=== PATIENT | male | born 1995 | race Caucasian/White ===

== ENCOUNTER 2017-06-15 19:57 | Emergency (ER) | payer BC ==
[~2017-06-15] VITALS: Ht 185.4 cm; Wt 88.5 kg
--- OUTSIDE RECORDS SUMMARY | 2017-06-15 20:04 | XMS REPORT | Continuity of Care Document ---
Author Author [facility] Address Unknown Phone Unavailable Allergies Active Description Code Type Severity Reaction Onset Reported/Identified Relationship to Patient Clinical Status Yes No Known Drug Allergies [id number] Drug Allergy Unknown N/ A 04/22/2010 Medications Problems Date Dx Coded Attending Type Code Diagnosis Diagnosed By 03/12/2008 ROBERTA ROMERO APRN 729.5 PAIN IN LIMB 03/12/2008 ROBERTA ROMERO APRN 786.2 COUGH 03/15/2008 ROBERTA ROMERO APRN 465.9 UPPER RESPIRATORY INFECTION 12/23/2008 ROBERTA ROMERO APRN 008.8 GASTROENTERITIS VIRAL 04/14/2009 ROBERTA ROMERO APRN 079.99 VIRAL SYNDROME 04/14/2009 ROBERTA ROMERO APRN 519.11 BRONCHOSPASM 04/22/2010 Ot 881.10 04/22/2010 Ot E000.8 04/22/2010 Ot E029.9 04/22/2010 Ot E849.8 04/22/2010 Ot E920.8 07/18/2010 ROBERTA ROMERO APRN 313.81 CD OPPOSITIONAL DEFIANT 11/17/2010 ROBERTA ROMERO APRN V05.4 VARICELLA, [place] 04/26/2014 ROBERTA ROMERO APRN 216.9 BENIGN NEOPLASM OF SKIN SITE UNSPECIFIED 04/26/2014 ROBERTA ROMERO APRN 462 ACUTE PHARYNGITIS 03/04/2015 ADAM STEPHENS, MARISELA Pelaez Ot 786.50 CHEST PAIN NOS 03/04/2015 ADAM STEPHENS, MARISELA Pelaez Ot 786.52 PAINFUL RESPIRATION Procedures Results Encounters ACCT No. Visit Date/Time Discharge Status Pt. Type Provider Facility Loc./Unit Complaint [id number] 04/26/2014 17:49:00 04/26/2014 23: 59:59 CLS Outpatient ROBERTA ROMERO APRN [id number] 03/04/2015 16:36:00 2014 17:40:00 DIS Emergency ADAM STEPHENS, MARISELA [facility] CHEST PAINS [id number] 04/22/2010 21:07:00 Document Registration
--- OUTSIDE RECORDS SUMMARY | 2017-06-15 20:04 | XMS REPORT ---
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 Info Not Available Non Drug Allergy Problems Problem Type Condition Code Onset Dates Condition Status Problem Benign neoplasm of skin, site unspecified 216.9 Active Assessment Allergic rhinitis, unspecified allergic rhinitis trigger, unspecified rhinitis seasonality J30.9 Active Problem Acute pharyngitis 462 Active Medications Medication Code System Code Instructions Start Date End Date Status Dosage Zyrtec Allergy [facility] [address]-32 10 MG Orally Once a day Mar 28, 2016 Apr 27, 2016 1 tablet Augmentin [facility] [address]-19 875-125 MG Orally every 12 hrs Mar 28, 2016 Apr 07, 2016 1 tablet Flonase [facility] [address]-56 50 MCG/ACT Nasally Once a day Mar 28, 2016 1 spray in each nostril Procedures Procedure Coding System Code Date Office Visit, Est Pt., Level 3 CPT-4 02010 Mar 28, 2016 Vital Signs Date/Time: Mar 28, 2016 Cardiac Monitoring Heart Rate 80 bpm Weight 170 lbs Height 72 in Wt Percentile 70.64 % BMI 23.05 Index Blood Pressure Diastolic 76 mmHg Blood Pressure Systolic 122 mmHg BMIPercentile 51.49 % Results No Known Results Summary Purpose [employer] Submission
[2017-06-15] MEDS ORDERED: RX-HYDROXYZINE PAMOATE 25 MG CAP #4 PO STA (20:26)
--- NOTE | 2017-06-15 20:34 | ED Psychosocial ---
General Chief Complaint: Psych/Social Disorder Stated Complaint: CP/SOB Nursing Triage Note: Ambulatory to ED 3 with reports of chest pain, shortness of breath, but reports that it feels more like an anxiety attack. Patient reports that he now feels somewhat better. Source: patient, family (mom) Exam Limitations: no limitations History of Present Illness Time seen by provider: 20:18 Initial Comments Patient presents to ER by private conveyance with his mother with a chief complaint that about an hour ago he started experiencing some palpitations heart racing and feeling a little shortness of breath. He says he was just at home taking a shower minding his own business not having any significant stress for the past day or 2. He says he gets these attacks usually for about 10-20 minutes every 1-2 weeks for the past several months. He thinks they are panic attacks and is never done anything about them. He sees Dr. Luevano as a primary care physician but was never addressed this problem with her. He has never been in counseling. He does not take any medications nor have any history of anxiety disorder. He is without any symptoms at this time. His mother was concerned because he seemed to complain that this was more severe than the past. He denies cough, history of asthma, shortness of breath, fevers, nausea, vomiting, diarrhea, rash, malaise, body aches. Allergies and Home Medications Allergies Coded Allergies: No Known Drug Allergies (Unverified , 04/22/10) Home Medications No Active Prescriptions or Reported Meds Constitutional: No chills, No fever, No malaise EENTM: No eye pain Respiratory: No cough, No short of breath, No stridor, No wheezing, No other Cardiovascular: No chest pain, No edema, palpitations (racing heart), No syncope, No vascular heart diseas Gastrointestinal: No abdominal pain, No constipation, No diarrhea, No loss of appetite, No nausea Genitourinary: No discharge, No dysuria Musculoskeletal: No back pain, No joint pain Skin: No dryness, No pruritus, No rash Psychiatric/Neurological: Denies Headache, Denies Numbness, Denies Paresthesia , Denies Pre-Existing Deficit, Denies Seizure Past Qlyaneu-Amtkeh-Rjfher Hx Patient Social History Alcohol Use: Occasionally Uses Recreational Drug Use: No Smoking Status: Never a Smoker 2nd Hand Smoke Exposure: No Recent Foreign Travel: No Contact w/Someone Who Travel: No Recent Infectious Disease Expo: No Physical Abuse: No Sexual Abuse: No Mistreated: No Fear: No Immunizations Up To Date Tetanus Booster (TDap): Unknown PED Vaccines UTD: Yes Seasonal Allergies Seasonal Allergies: No Surgeries History of Surgeries: Yes (wisdom teeth) Respiratory History of Respiratory Disorde: No Cardiovascular History of Cardiac Disorders: No Neurological History of Neurological Disord: No Reproductive System Hx Reproductive Disorders: No Gastrointestinal History of Gastrointestinal Di: No Musculoskeletal History of Musculoskeletal Dis: No Endocrine History of Endocrine Disorders: No Cancer History of Cancer: No Psychosocial History of Psychiatric Problem: Yes Behavioral Health Disorders: Anxiety Suicide Risk Score: 0 Integumentary History of Skin or Integumenta: No Blood Transfusions History of Blood Disorders: No Family Medical History Significant Family History: Heart Disease, Cancer, Diabetes Physical Exam Vital Signs Vital Sign - Last 12Hours 06/15/17 19:58 Temp 98.5 Pulse 63 Resp 18 B/P (MAP) 144/79 Pulse Ox 98 O2 Delivery Room Air Capillary Refill : Less Than 3 Seconds General Appearance: WD/WN, no apparent distress HEENT: PERRL/EOMI, pharynx normal Neck: non-tender, full range of motion, normal inspection Respiratory: chest non-tender, lungs clear, normal breath sounds Cardiovascular: normal peripheral pulses, regular rate, rhythm, no edema, no murmur Peripheral Pulses: 2+ Radial Pulses (R), 2+ Radial Pulses (L) Gastrointestinal: normal bowel sounds, non tender, soft Extremities: normal inspection, normal capillary refill Neurologic/Psychiatric: alert, normal mood/affect, oriented x 3 Appearance/Memory: appropriate appearance, appropriate insight, neat Behavior/Eye Contact: cooperative, good eye contact, normal speech Thoughts/Hallucinations: normal thought pattern, no apparent hallucination Skin: normal color, warm/dry Progress/Results/Core Measures Results/Orders My Orders Orders - CORTEZ BISHOP Ekg Tracing (06/15/17 20:01) Rx-Hydroxyzine Pamoate (Rx-Vistaril) (06/15/17 20:26) Vital Signs/I&O Vital Sign - Last 12Hours 06/15/17 19:58 Temp 98.5 Pulse 63 Resp 18 B/P (MAP) 144/79 Pulse Ox 98 O2 Delivery Room Air Blood Pressure Mean: 100 Progress Note : Time: 20:30 Progress Note Patient describes classic panic attack. Since is happening this often he would behoove him to address this with cognitive behavioral therapy, counseling and possibly medications. We will trial him with some short acting Vistaril when necessary and have him follow-up with his primary care physician outpatient. ECG Initial ECG Impression Date: Jun 15, 2017 Initial ECG Impression Time: 19:59 Initial ECG Rate: 61 Initial ECG Rhythm: Normal Sinus Initial ECG Intervals: Normal Initial ECG Impression: Normal, Nonspecific Changes Initial ECG Comparisson: No Previous ECG Available Comment No T-wave elevation or depression. There is some variation in the rate owing to respiratory artifact. Departure Impression Impression: Primary Impression: Panic attacks Disposition: 01 HOME, SELF-CARE Condition: Stable Departure-Patient Inst. Decision time for Depature: 20:32 Referrals: JT LUEVANO DO (PCP/Family) Primary Care Physician Patient Instructions: Panic Disorder (DC) Add. Discharge Instructions: Practice the cognitive behavioral technique of mindful breathing whenever you notice the first signs of a panic attack coming on. Remove yourself from the situation get a cool drink and go to a calm, cool, dark place with limited noise. You may also take one tablet of Vistaril every 6 hours as needed when you notice a panic attack is coming on. Since you're having panic attacks this often it is recommended you seek follow-up with your primary care physician and possible counseling. All discharge instructions reviewed with patient and/or family. Voiced understanding. Scripts Hydroxyzine Pamoate (Vistaril) 25 Mg Capsule 25 MG PO Q6H Y for ANXIETY, #20 CAP 0 Refills Prov: CORTEZ BISHOP 06/15/17 Copy Copies To 1: JT LUEVANO TITUS J Jun 15, 2017 20:34
[2017-06-15] MEDS ORDERED: HYDR25CA PO (20:35)
[2017-06-15 20:41] VITALS: BP 132/70
== END 2017-06-15 20:41 | disposition home or self-care (01) ==
LOC: EDUNIT# 19:57 → ER 20:00
DX: F41.0 Panic disorder [episodic paroxysmal anxiety] (principal); Z82.49 Family history of ischemic heart disease and other diseases of the circulatory system; Z80.9 Family history of malignant neoplasm, unspecified
CPT/HCPCS: 93005